=== PATIENT | male | born 1990 | race Caucasian/White ===

== ENCOUNTER 2017-12-26 14:45 | Inpatient (IN) | payer OTHER ==
[~2017-12-26] VITALS: Ht 160 cm; Wt 63.5 kg
== END 2017-12-30 12:42 | disposition home or self-care (01) | DRG 621 ==
LOC: O/R 12-29 06:00 → SURG 12-29 16:23
PROVIDERS: Specialist
PROC: 0J090ZZ Alteration of Buttock Subcutaneous Tissue and Fascia, Open Approach (ICD-10-PCS; 2017-12-29)
PROC: 0J080ZZ Alteration of Abdomen Subcutaneous Tissue and Fascia, Open Approach (ICD-10-PCS; principal; 2017-12-29 07:00)
DX: E65 Localized adiposity (principal); L98.7 Excessive and redundant skin and subcutaneous tissue

== ENCOUNTER 2019-06-07 16:46 | Emergency (ER) | payer OTHER ==
[~2019-06-07] VITALS: Ht 152.4 cm; Wt 59.0 kg
[2019-06-07] MEDS ORDERED: TRUVADA 200 MG1 EACH PO (17:07)
== END 2019-06-07 22:20 | disposition home or self-care (01) ==
LOC: ER 16:46
DX: R10.11 Right upper quadrant pain (principal)